=== PATIENT | female | born 1995 | race African-American/Black ===

== ENCOUNTER 2018-07-27 08:43 | Emergency (ER) | payer MEDICAID ==
[~2018-07-27] VITALS: Ht 175.3 cm; Wt 49.0 kg
[~2018-07-27 08:43] MED LIST: AMOXICILLIN500 MG ORAL; IBUPROFEN600 MG ORAL; KEFLEX500 MG ORAL; NKM; PENICILLIN V P500 MG PO; PREDNISONE20 MG ORAL
--- NOTE | 2018-07-27 08:57 | NUR ---
ED Nurse Note: Pt came into the ER w/ complaints of frequency upon urination x 2 weeks. No burning sensation upon urination. Pt states that she has vaginal discharge colored white as well. No complants of pain. A+ O x4. Ambulatory. Skin warm to touch.
[2018-07-27 08:58] VITALS: BP 124/85
--- NOTE | 2018-07-27 09:05 | NUR ---
ED Nurse Note: Urine has been collected and sent to lab. Awaiting results.
--- NOTE | 2018-07-27 09:05 | Emergency Room Report ---
History of Present Illness General Chief Complaint: Female Urogenital Problems Source: Patient Present Illness HPI Patient has a history of recent infections. Patient states that she's not currently sexually active. Her last sexual encounter was over 6 months ago. Patient presents emergency department today complaining of itchiness whitish discharge in the vaginal area. She complains of dysuria worsening over last few days. She complains of urinary frequency. She denies any fever chest pain shortness of breath. States that her last period was 2 weeks ago. No other complaints are noted. Symptoms noted to be [id number]. Patient's last Pap smear was a year ago. No other modifying factors. No other associated signs and symptoms. No other complaints were noted. Allergies: Coded Allergies: No Known Allergies (Unverified , 07/17/13) Patient History Past Medical History: none Past Surgical History: none Pertinent Family History: none Social History: Denies: smoking, alcohol use, drug use Last Menstrual Period: 2 weeks ago Now: No Reviewed Nursing Documentation: PMH: Agreed; PSxH: Agreed Nursing Documentation-PMH Past Medical History: No Stated History Review of Systems All Other Systems: negative except mentioned in HPI Physical Exam Vital Signs Date Time Temp Pulse Resp B/P (MAP) Pulse Ox O2 Delivery O2 Flow Rate FiO2 07/27/18 08:46 97.9 52 19 124/85 99 Room Air Sp02 EP Interpretation: reviewed, normal General Appearance: normal inspection, well appearing, no apparent distress, alert Head: atraumatic Eyes: bilateral eye normal inspection ENT: normal ENT inspection, hearing grossly normal, normal voice Neck: normal inspection, full range of motion, supple, no bony tend Respiratory: normal inspection, lungs clear, normal breath sounds, no respiratory distress, no retraction, no wheezing Cardiovascular #1: regular rate, rhythm, no edema Gastrointestinal: normal inspection, normal bowel sounds, non tender, soft, no guarding, no hernia Genitourinary: no CVA tenderness Musculoskeletal: normal inspection, back normal, normal range of motion Neurologic: normal inspection, alert, responsive, speech normal Psychiatric: normal inspection, judgement/insight normal, mood/affect normal Skin: normal inspection, normal color, no rash Medical Decision Making Diagnostic Impression: Primary Impression: UTI (urinary tract infection) Additional Impression: Vaginitis ER Course Patient presents emergency department today complaining of dysuria and vaginal irritation. Differential considerations include bowel nephritis, UTI, vaginitis , STD just name a few. Patient's exam and history is consistent with vaginitis likely secondary to krista we'll start patient on Diflucan. Patient's dysuria is consistent with UTI given the urine testing. We'll start patient on Keflex.Patient is advised to follow up with primary doctor in 2-3 days and return the emergency room for any worsening symptoms and as needed. Labs Test 07/27/18 08:50 Urine Color Pale yellow Urine Appearance Cloudy Urine pH 6 (4.5-8.0) Urine Specific [place] 1.015 (1.005-1.035) Urine Protein 1+ (NEGATIVE) Urine Glucose (UA) Negative (NEGATIVE) Urine Ketones Negative (NEGATIVE) Urine Blood 5+ (NEGATIVE) Urine Nitrite Positive (NEGATIVE) Urine Bilirubin Negative (NEGATIVE) Urine Urobilinogen Normal MG/DL (0.0-1.0) Urine Leukocyte Esterase 2+ (NEGATIVE) Urine RBC 30-40 /HPF (0 - 2) Urine WBC 2-4 /HPF (0 - 2) Urine Squamous Epithelial Cells Moderate /LPF (NONE/OCC) Urine Bacteria Many /HPF (NONE) Urine HCG, Qualitative Negative (NEGATIVE) Last Vital Signs Date Time Temp Pulse Resp B/P (MAP) Pulse Ox O2 Delivery O2 Flow Rate FiO2 07/27/18 08:58 97.9 78 19 124/85 99 Room Air Status: improved Disposition: HOME, SELF-CARE Condition: Stable Scripts Cephalexin* (KEFLEX*) 500 Mg Capsule 500 MG ORAL EVERY 6 HOURS for 7 Days, CAP Prov: Nima Dobbs MD 07/27/18 Fluconazole (DIFLUCAN) 150 Mg Tablet 150 MG PO DAILY for 3 Days, TAB Prov: Nima Dobbs MD 07/27/18 Nima Dobbs MD Jul 27, 2018 09:05
[2018-07-27 09:48] LABS: APPEARANCE,URINE CLOUDY; BILIRUBIN, URINE NEGATIVE (NEGATIVE); COLOR,URINE PALE YELLOW; GLUCOSE, URINE (UA) NEGATIVE (NEGATIVE); KETONES,URINE NEGATIVE (NEGATIVE); LEUKOCYTE ESTERASE ,URINE 2+ (NEGATIVE); NITRITE,URINE POSITIVE (NEGATIVE); PH,URINE 6 (4.5-8.0); PROTEIN,URINE 1+ (NEGATIVE); UROBILINOGEN,URINE NORMAL MG/DL (0.0-1.0)
[2018-07-27] MEDS ORDERED: CEPHALEXIN500 MG ORAL (09:55)
[2018-07-27] MEDS ORDERED: DIFLUCAN150 MG PO (09:55)
[2018-07-27 10:00] VITALS: BP 121/74
--- NOTE | 2018-07-27 10:00 | NUR ---
ED Nurse Note: Discharge instructions given to pt. Answered all questions. Verbalized understanding. No acute distress noted. ID band removed. Left ER w/ all belongings and w/ a steady gait.
== END 2018-07-27 10:00 | disposition home or self-care (01) ==
LOC: EMR 09:20
DX: N39.0 Urinary tract infection, site not specified (principal); N76.0 Acute vaginitis
CPT/HCPCS: 81003; 81025; 87086; 87181; 99283

== ENCOUNTER → 2020-03-10 | Emergency (ER) | payer MEDICAID ==
[~2020-03-10] MED LIST changes: +CEPHALEXIN500 MG ORAL; +DIFLUCAN150 MG PO
== END | disposition home or self-care (01) ==
LOC: EMR 22:11
DX: Z00.00 Encounter for general adult medical examination without abnormal findings (principal)
CPT/HCPCS: 99281